=== PATIENT | male | born 1995 | race Caucasian/White ===

== ENCOUNTER → 2018-01-18 03:49 | Emergency (ER) | payer SELFPAY ==
[2018-01-18 03:55] VITALS: BP 147/76
== END | disposition left against medical advice (07) ==
LOC: ED 03:49
DX: S01.511A Laceration without foreign body of lip, initial encounter (principal); Y09 Assault by unspecified means; Y93.9 Activity, unspecified; Y92.89 Other specified places as the place of occurrence of the external cause; Z53.21 Procedure and treatment not carried out due to patient leaving prior to being seen by health care provider

== ENCOUNTER 2018-01-18 04:14 | Emergency (ER) | payer SELFPAY ==
[2018-01-18] MEDS ORDERED: Lidocaine 1% INJ* 10 MG/ML 30 ML SDV INJ ONE (05:00)
[2018-01-18 06:14] VITALS: BP 145/90
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
== END 2018-01-18 06:13 | disposition home or self-care (01) ==
LOC: ED 04:14
DX: S01.511A Laceration without foreign body of lip, initial encounter (principal); Y04.2XXA Assault by strike against or bumped into by another person, initial encounter; Y93.9 Activity, unspecified; Y92.9 Unspecified place or not applicable; Z88.0 Allergy status to penicillin; F17.210 Nicotine dependence, cigarettes, uncomplicated
CPT/HCPCS: 12011; 99282

== ENCOUNTER 2018-04-08 19:44 | Emergency (ER) | payer OTHER ==
[2018-04-08] MEDS ORDERED: Ketorolac INJ* 60 MG/2 ML VIAL IM ONE (20:47)
[2018-04-08 21:29] LABS: Urine Appearance Clear; Urine Blood 1+ (Negative); Urine Color Colorless; Urine Ketones Negative (Negative); Urine Protein Negative (Negative); Urine Specific Gravity 1.002 (1.010-1.030); Urine Urobilinogen Negative (Negative)
--- NOTE | 2018-04-08 21:38 | RAD ---
INDICATION: Right testicular pain. COMPARISON: There are no prior studies available for comparison. TECHNIQUE: Multiple real-time images of the testicles were obtained including color Doppler images and Doppler tracings. FINDINGS: The testicles are normal in size and shape. The right testicle measured 4.5 x 2.2 x 3.5 cm and the left testicle measured 3.8 x 2.1 x 3.0 cm. There are scattered coarse calcifications within the right testicle. No discrete mass is seen. The right epididymis is enlarged. There is increased blood flow within the right epididymis and right testicle most consistent with epididymal orchitis. There is a small right hydrocele. IMPRESSION: 1. FINDINGS MOST CONSISTENT WITH RIGHT EPIDIDYMAL ORCHITIS. 2. COARSE CALCIFICATIONS WITHIN THE RIGHT TESTICLE RECOMMEND A FOLLOW-UP TESTICULAR ULTRASOUND IN 6 MONTHS TIME TO DEMONSTRATE STABILITY.
[2018-04-08] MEDS ORDERED: DOXYcycline CAP(*) 100 MG PO ONE (22:11)
[2018-04-08 22:28] VITALS: BP 129/82
--- NOTE | 2018-04-09 19:25 | ED ---
Sarath Arellano Stephanie, scribed for Laurent Botello MD on 04/08/18 at 2050 . GI/ HPI - HPI Summary HPI Summary: The pt is a 23 y/o M presenting to the ED with c/o R testicular pain that began at 15:00 today. Symptoms include swelling. He denies fever and vomiting. The pt denies trauma. - History of Current Complaint Chief Complaint: EDUrogenitalProblems Time Seen by Provider: 04/08/18 20:23 Stated Complaint: TESTICULAR PAIN Hx Obtained From: Patient Onset/Duration: Started Hours Ago Timing: Constant Current Severity: Moderate Pain Intensity: 4 Location of Pain: Other - testicular Additional Locations for Males: Testicles Associated Signs and Symptoms: Positive: Other: - testicular swelling. Negative : Vomiting, Fever Aggravating Factor(s): Nothing Alleviating Factor(s): Nothing - Allergy/Home Medications Allergies/Adverse Reactions: Allergies Allergy/AdvReac Type Severity Reaction Status Date / Time Penicillins Allergy Rash Verified 01/18/18 03:55 PMH/Surg Hx/FS Hx/Imm Hx Endocrine/Hematology History: Denies: Hx Diabetes, Hx Thyroid Disease Cardiovascular History: Denies: Hx Hypertension Respiratory History: Denies: Hx Asthma, Hx Chronic Obstructive Pulmonary Disease (COPD) GI History: Denies: Hx Ulcer Sensory History: Denies: Hx Legally Blind EENT History: Denies: Hx Deafness - Surgical History Surgery Procedure, Year, and Place: NONE Infectious Disease History: No Infectious Disease History: Denies: Hx Hepatitis, Hx Human Immunodeficiency Virus (HIV), Traveled Outside the [place] in Last 30 Days - Family History Known Family History: Positive: Unknown - Reviewed and noncontributory - Social History Occupation: Employed Part-time Lives: With Family Alcohol Use: Weekly Hx Substance Use: Yes Substance Use Type: Reports: Marijuana Substance Use Comment - Amount & Last Used: daily Hx Tobacco Use: Yes Smoking Status (MU): Heavy Every Day Tobacco Smoker Type: Cigarettes Have You Smoked in the Last Year: Yes Review of Systems Negative: Fever Negative: Vomiting Positive: other - testicular pain, testicular swelling All Other Systems Reviewed And Are Negative: Yes Physical Exam - Summary Physical Exam Summary: VITAL SIGNS: Reviewed. GENERAL: Patient is a well-developed and nourished MALE who is lying comfortable in the stretcher. Patient is not in any acute respiratory distress. HEAD AND FACE: No signs of trauma. No ecchymosis, hematomas or skull depressions. No sinus tenderness. EYES: PERRLA, EOMI x 2, No injected conjunctiva, no nystagmus. EARS: Hearing grossly intact. Ear canals and tympanic membranes are within normal limits. MOUTH: Oropharynx within normal limits. NECK: Supple, trachea is midline, no adenopathy, no JVD, no carotid bruit, no c- spine tenderness, neck with full ROM. CHEST: Symmetric, no tenderness at palpation LUNGS: Clear to auscultation bilaterally. No wheezing or crackles. CVS: Regular rate and rhythm, S1 and S2 present, no murmurs or gallops appreciated. ABDOMEN: Soft, non-tender. No signs of distention. No rebound no guarding, and no masses palpated. Bowel sounds are normal. GENITALIA:R testicle is swollen, red and tender. The R testicle is lower than the other one EXTREMITIES: FROM in all major joints, no edema, no cyanosis or clubbing. NEURO: Alert and oriented x 3. No acute neurological deficits. Speech is normal and follows commands. SKIN: Dry and warm Triage Information Reviewed: Yes Vital Signs On Initial Exam: Initial Vitals Temp Pulse Resp BP Pulse Ox 98.3 F 99 18 120/73 100 04/08/18 20:01 04/08/18 20:01 04/08/18 20:01 04/08/18 20:01 04/08/18 20:01 Vital Signs Reviewed: Yes Diagnostics - Vital Signs Vital Signs Temp Pulse Resp BP Pulse Ox 04/08/18 20:01 98.3 F 99 18 120/73 100 - Laboratory Lab Statement: Any lab studies that have been ordered have been reviewed, and results considered in the medical decision making process. - Additional Comments Diagnostic Additional Comments: Testicular US reveals: 1. FINDINGS MOST CONSISTENT WITH RIGHT EPIDIDYMAL ORCHITIS. 2. COARSE CALCIFICATIONS WITHIN THE RIGHT TESTICLE RECOMMEND A FOLLOW-UP TESTICULAR ULTRASOUND IN 6 MONTHS TIME TO DEMONSTRATE STABILITY. ED physician has reviewed this report. Re-Evaluation - Re-Evaluation First Eval Re-Evaluation Time: 22:14 Change: Unchanged - ED physician discussed results of UC with the pt. ED physician discussed plan of discharge with the pt and the pt understands. GIGU Course/Dx - Course Course Of Treatment: The pt is a 23 y/o M presenting to the ED with c/o R testicular pain that began at 15:00 today. Symptoms include swelling. - Diagnoses Provider Diagnoses: Epididymo-orchitis Discharge - Sign-Out/Discharge Documenting (check all that apply): Discharge/Admit/Transfer - Discharge - Discharge Plan Condition: Stable Disposition: HOME Prescriptions: DOXYcycline CAP(*) [DOXYcycline 100MG CAP(*)] 100 mg PO BID #14 cap Ibuprofen TAB* [Motrin TAB* 800 MG] 800 mg PO Q6H PRN #30 tab PRN Reason: Pain Patient Education Materials: Epididymo-Orchitis (ED) Referrals: Andrés Mackay MD [Medical Doctor] - 1 Week Additional Instructions: Return to the ED for new or worsening symptoms. The documentation as recorded by the Sarath de la cruz Stephanie accurately reflects the service I personally performed and the decisions made by Rosmery brian Abdul, MD.
== END 2018-04-08 22:26 | disposition home or self-care (01) ==
LOC: ED 19:44
DX: N45.3 Epididymo-orchitis (principal); F17.210 Nicotine dependence, cigarettes, uncomplicated; Z88.0 Allergy status to penicillin
CPT/HCPCS: 76870; 81003; 81015; 87086; 96372; 99283; A9270-GY; J1885

== ENCOUNTER 2019-03-31 17:43 | Emergency (ER) | payer MEDICAID, OTHER ==
[2019-03-31] MEDS ORDERED: fentaNYL* 50 MCG/ML 2 ML VIAL (100 MCG VIAL) ONE (17:58)
--- NOTE | 2019-03-31 18:14 | ED ---
Laceration/Wound HPI - HPI Summary HPI Summary: This pt is a 23 y/o male presenting to [facility] via EMS c/o accidental laceration to left wrist today. Pt reports that he was using a box lidder (razor knife) with a hook at work while cutting a strap when it slipped and he cut his LEFT wrist. Pt states he immediately put pressure on wrist. Denies any other injuries. EMS placed a tourniquet on LUE [employer]ATOR and brought the pt to the ED. - History of Current Complaint Stated Complaint: LT WRIST LAC PER EMS Hx Obtained From: Patient Mechanism of Injury: Sharp/Blunt Trauma Onset/Duration: Lasting Minutes, Still Present Aggravating: Nothing Alleviating: Compression Timing: Constant Current Severity: Severe Pain Intensity: 10 Pain Scale Used: 0-10 Numeric Associated Signs & Symptoms: Pain Related Hx: Other - s/p accidentally cutting left wrist with razor knife while at work. - Allergy/Home Medications Allergies/Adverse Reactions: Allergies Allergy/AdvReac Type Severity Reaction Status Date / Time Penicillins Allergy Rash Verified 01/18/18 03:55 PMH/Surg Hx/FS Hx/Imm Hx Endocrine/Hematology History: Denies: Hx Diabetes, Hx Thyroid Disease Cardiovascular History: Denies: Hx Hypertension Respiratory History: Denies: Hx Asthma, Hx Chronic Obstructive Pulmonary Disease (COPD) GI History: Denies: Hx Ulcer Sensory History: Denies: Hx Legally Blind, Hx Deafness Opthamlomology History: Denies: Hx Legally Blind - Surgical History Surgery Procedure, Year, and Place: NONE Infectious Disease History: No Infectious Disease History: Denies: Hx Hepatitis, Hx Human Immunodeficiency Virus (HIV), Traveled Outside the [place] in Last 30 Days - Family History Known Family History: Negative: Cardiac Disease, Hypertension, Diabetes - Social History Alcohol Use: Weekly Hx Substance Use: Yes Substance Use Type: Reports: Marijuana Substance Use Comment - Amount & Last Used: daily Hx Tobacco Use: Yes Smoking Status (MU): Heavy Every Day Tobacco Smoker Type: Cigarettes Have You Smoked in the Last Year: Yes Review of Systems Negative: Fever ENT: Negative Cardiovascular: Negative Respiratory: Negative Musculoskeletal: Other - POS: left wrist pain Skin: Other - POS: laceration to left wrist All Other Systems Reviewed And Are Negative: Yes Physical Exam - Summary Physical Exam Summary: VITAL SIGNS: Reviewed. GENERAL: Patient is a well-developed and nourished male. Patient is not in any acute respiratory distress. HEAD AND FACE: No signs of trauma. No ecchymosis, hematomas or skull depressions. No sinus tenderness. EYES: PERRLA, EOMI x 2, No injected conjunctiva, no nystagmus. EARS: Hearing grossly intact. Ear canals and tympanic membranes are within normal limits. MOUTH: Oropharynx within normal limits. NECK: Supple, trachea is midline, no adenopathy, no JVD, no carotid bruit, no c- spine tenderness, neck with full ROM. CHEST: Symmetric, no tenderness at palpation LUNGS: Clear to auscultation bilaterally. No wheezing or crackles. CVS: Regular rate and rhythm, S1 and S2 present, no murmurs or gallops appreciated. ABDOMEN: Soft, non-tender. No signs of distention. No rebound no guarding, and no masses palpated. Bowel sounds are normal. EXTREMITIES: LUE: 6 cm laceration that is very deep. Tendons, arteries, and veins are visible. Patient has a blue left arm because of the tourniquet placed by EMS. Patient is squirting blood all over the place. Decreased sensation in all left fingers. Capillary refill is 3 seconds in LUE. NEURO: Alert and oriented x 3. No acute neurological deficits. Speech is normal and follows commands. SKIN: Dry and warm. LUE: 6 cm laceration that is very deep. Tendons, arteries, and veins are visible. Patient has a blue left arm because of the tourniquet placed by EMS. Patient is squirting blood all over the place. Decreased sensation in all left fingers. Capillary refill is 3 seconds in LUE. Triage Information Reviewed: Yes Vital Signs On Initial Exam: Initial Vitals Temp Pulse Resp BP Pulse Ox 98.2 F 104 20 145/85 100 03/31/19 17:55 03/31/19 17:55 03/31/19 17:55 03/31/19 17:55 03/31/19 17:55 Vital Signs Reviewed: Yes Diagnostics - Vital Signs Vital Signs Temp Pulse Resp BP Pulse Ox 03/31/19 17:55 98.2 F 104 20 145/85 100 - Laboratory Result Diagrams: 03/31/19 18:25 Lab Statement: Any lab studies that have been ordered have been reviewed, and results considered in the medical decision making process. Re-Evaluation - Re-Evaluation First Eval Re-Evaluation Time: 18:30 Comment: Attempted to place sutures 4-O prolene for arterial and venous bleed. It has slowed down the bleed. Laceration Repair Course/Dx - Course Assessment/Plan: 23-year-old male presents to the ED with a laceration in upper area of the left wrist and with arterial bleed. I attempted multiple times to place sutures with Prolene 4.0 and it seems that it slowed the bleeding. I released the torniquete and I apply a pressure dressing and it seems that the bleeding has stopped. I discussed the case with Dr. Davidson vascular surgeon from [facility] and he accepted and the patient for transfer. The patient reports that it was an accidental cut with a razor blade. Patient is hemodynamically stable. Patient will be transferred to [facility] via helicopter. I will send blood products with equal just in case the patient starts bleeding again. - Clinical Impression Provider Diagnoses: Arterial hemorrhage - Physician Notifications Discussed Care Of Patient With: Dr. Davidson Time Discussed With Above Provider: 18:22 Instructed by Provider To: Other - Discussed the case with Dr. Davidson, vascular surgeon from [facility], who accepted the pt for transfer to the ED. - Critical Care Time Critical Care Time: 30-74 min Discharge - Sign-Out/Discharge Documenting (check all that apply): Patient Departure - Transfer to [facility] Patient Received Moderate/Deep Sedation with Procedure: No - Discharge Plan Condition: Stable Disposition: TRANS HIGHER LVL OF CARE FAC Referrals: No Primary Care Phys,NOPCP [Primary Care Provider] - - Billing Disposition and Condition Condition: STABLE Disposition: Trans Higher Lvl of Care Fac - Attestation Statements Document Initiated by Scrpaule: Yes Documenting Scribe: Divine Haile Provider For Whom Luda is Documenting (Include Credential): Marcio Wesley MD Scribe Attestation: I, Divine Haile, j luised for Marcio Wesley MD on 03/31/19 at 1840. Scribe Documentation Reviewed: Yes Provider Attestation: The documentation as recorded by the Divine de la cruz accurately reflects the service I personally performed and the decisions made by me, Marcio Wesley MD Status of Scribe Document: Viewed
[2019-03-31] MEDS ORDERED: fentaNYL* 50 MCG/ML 2 ML VIAL (100 MCG VIAL) IV SLOW PU PRN (18:28)
[2019-03-31 18:32] LABS: ABS Eosinophils 0.3 10^3/ul (0-0.6); ABS Lymphocytes 2.1 10^3/ul (1.0-4.8); ABS Monocytes 0.5 10^3/ul (0-0.8); ABS Neutrophils 1.9 10^3/ul (1.5-7.7); Eosinophil % 6.1 %; Hematocrit 42 % (42-52); Hemoglobin 14.1 g/dL (14.0-18.0); Lymphocyte % 43.5 %; Mean Corpuscular HGB Conc 34 g/dL (31-36); Mean Corpuscular Hemoglobin 29 pg (27-31); Mean Corpuscular Volume 87 fL (80-94); Mean Platelet Volume 7.6 fL (7.4-10.4); Nucleated Red Blood Cells % 0.1; Platelet Count 224 10^3/uL (150-450); Red Blood Count 4.82 10^6 /uL (4.18-5.48); Red Cell Distribution Width 13 % (10.5-15); White Blood Count 4.9 10^3/uL (3.5-10.8)
[2019-03-31] MEDS ORDERED: fentaNYL* 50 MCG/ML 2 ML VIAL (100 MCG VIAL) IV SLOW PU ONE ×2 (18:42)
[2019-03-31 18:47] LABS: Albumin 4.1 g/dL (3.2-5.2); Albumin/Globulin Ratio 1.8 (1-3); BUN/Creatinine Ratio 15.2 (8-20); Calcium 8.9 mg/dL (8.6-10.3); EGFR African American 112.4 (>60); EGFR Non-African American 92.9 (>60); Globulin 2.3 g/dL (2-4); Potassium 3.9 mmol/L (3.5-5.0); Total Bilirubin 0.4 mg/dL (0.2-1.0); Total Protein 6.4 g/dL (6.4-8.9)
[2019-03-31 18:53] VITALS: BP 145/95
== END 2019-03-31 19:26 | disposition short-term general hospital (02) ==
LOC: ED 17:43
DX: R58 Hemorrhage, not elsewhere classified (principal); S61.512A Laceration without foreign body of left wrist, initial encounter; W26.0XXA Contact with knife, initial encounter; Y99.0 Civilian activity done for income or pay; F17.210 Nicotine dependence, cigarettes, uncomplicated; Z88.0 Allergy status to penicillin
CPT/HCPCS: 36415; 80053; 85025; 86850; 86900; 86901; 86922; 96374; 99285; J3010